=== PATIENT | male | born 1955 | race Asian ===

== ENCOUNTER 2021-09-27 14:44 | Emergency (ER) | payer OTHER ==
[~2021-09-27] VITALS: Ht 167.6 cm; Wt 79.8 kg
[2021-09-27] MEDS ORDERED: HYDROCODONE/APAP 5/325MG TABLET PO ONE (15:30)
[2021-09-27] MEDS ORDERED: TDAP [DIPH/PERTUSSIS/TET] 0.5 ML VIAL IM ONE ×2 (15:30→15:57)
[2021-09-27] MEDS ORDERED: AMOX-430 PO (15:54)
[2021-09-27] MEDS ORDERED: HYDROCODONE/APAP 5/325MG TABLET ONE (16:06)
--- NOTE | 2021-09-27 16:23 | NUR ---
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 all medication orders provided, tdap does given [id number] , expiration date 06/08/23, site upper right deltoid, took norco po for pain - effective.
[2021-09-27 17:04] VITALS: BP 132/88
== END 2021-09-27 17:05 | disposition home or self-care (01) ==
LOC: ER 14:49
DX: S20.311A Abrasion of right front wall of thorax, initial encounter (principal); S61.532A Puncture wound without foreign body of left wrist, initial encounter; I10 Essential (primary) hypertension; W54.0XXA Bitten by dog, initial encounter; Y93.89 Activity, other specified; Y92.89 Other specified places as the place of occurrence of the external cause; Y99.8 Other external cause status
CPT/HCPCS: 90715